=== PATIENT | male | born 1995 | race Caucasian/White ===

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

== ENCOUNTER 2018-04-27 21:10 | Emergency (ER) | payer OTHER ==
[~2018-04-27] VITALS: Ht 177.8 cm; Wt 59.9 kg
[2018-04-27 21:29] VITALS: Ht 177.8 cm; Wt 59.9 kg
[2018-04-28 02:58] VITALS: BP 125/70
== END 2018-04-28 02:47 | disposition home or self-care (01) ==
LOC: ED 21:10
DX: S52.021A Displaced fracture of olecranon process without intraarticular extension of right ulna, initial encounter for closed fracture (principal); J45.909 Unspecified asthma, uncomplicated; F41.9 Anxiety disorder, unspecified; Z98.890 Other specified postprocedural states; V87.8XXA Person injured in other specified noncollision transport accidents involving motor vehicle (traffic), initial encounter; Y93.I9 Activity, other involving external motion; Y92.413 State road as the place of occurrence of the external cause; Y99.8 Other external cause status
CPT/HCPCS: J1885; J2270; J3490; Q0092